=== PATIENT | male | born 1965 | race Two or more races ===

== ENCOUNTER 2021-07-14 21:31 | Emergency (ER) | payer MEDICAID ==
[~2021-07-14] VITALS: Ht 170.2 cm; Wt 99.8 kg
[2021-07-14 22:33] LABS: Urine Amorphous Crystal MOD /hpf (None Seen); Urine Bacteria FEW /hpf (None Seen); Urine Blood Negative /uL (Negative); Urine Mucus FEW (None Seen); Urine Specific Gravity 1.025 (1.001-1.035); Urine WBC <1 /hpf (0 - 3)
[2021-07-14 23:10] LABS: Basophils # (auto) 0.1 10 ^3/uL (0-0.2); Basophils % (auto) 0.8 % (0.0-2.0); Eosinophils # (auto) 0.1 10 ^3/uL (0-0.8); Eosinophils % (auto) 2.2 % (0.0-7.0); Hemoglobin 15.9 g/dL (13.5-17.5); Lymphocytes # (auto) 2.1 10 ^3/uL (0.4-5.4); Lymphocytes % (auto) 31.1 % (10.0-50.0); Mean Corpuscular Hemoglobin 32.6 pg (28.0-32.0); Mean Corpuscular Hgb Conc. 33.8 g/dL (32.0-36.0); Mean Corpuscular Volume 96.3 fL (80.0-100.0); Monocytes # (auto) 0.8 10 ^3/uL (0-1.3); Monocytes % (auto) 12.4 % (0.0-12.0); Neutrophils # (auto) 3.6 10 ^3/uL (1.6-8.6); Neutrophils % (auto) 53.5 % (37.0-80.0); Nucleated Red Blood Cells % 0.1 %; Red Blood Cells 4.88 10^6/uL (4.5-5.90); Red Cell Distribution Width 13.7 % (11.8-14.3); White Blood Cell 6.7 10^3/uL (4.4-10.8)
[2021-07-14 23:26] LABS: Albumin 3.9 g/dL (3.4-5.0); Magnesium 2.6 mg/dL (1.6-2.6); Potassium 4.2 mmol/L (3.5-5.1)
[2021-07-14 23:28] LABS: Bilirubin, Total 0.6 mg/dL (0.2-1.0); Total Protein 7.1 g/dL (6.4-8.2)
[2021-07-15] MEDS ORDERED: IPRATROPIUM BROM 0.5 MG/2.5ML INH SOL NEB ONE (03:00)
[2021-07-15] MEDS ORDERED: KETOROLAC TROMETH 60MG/2ML VIAL IM ONE (03:00)
[2021-07-15] MEDS ORDERED: ALBUTEROL SULF 2.5 MG/0.5ML(0.5%) NEB SOLN NEB ONE (03:00)
[2021-07-15] MEDS ORDERED: ASPirin 325 MG TAB PO ONE (03:00)
[2021-07-15 06:00] VITALS: BP 113/66
== END 2021-07-15 06:35 | disposition home or self-care (01) ==
LOC: ER 21:31
DX: R07.9 Chest pain, unspecified (principal); I10 Essential (primary) hypertension; J45.909 Unspecified asthma, uncomplicated
CPT/HCPCS: 36415; 71045; 80053; 81001; 83735; 83880; 84484; 85025; 93005; 94640; 99285; J7644

== ENCOUNTER 2021-09-18 20:22 | Inpatient (IN) | payer MEDICAID ==
[~2021-09-18] VITALS: Ht 170.2 cm; Wt 101.2 kg
[2021-09-18] MEDS ORDERED: ALUM & MAG HYDROX-SIMETH LIQ(MAALOX) 30 ML PO ONE (23:00)
[2021-09-18] MEDS ORDERED: ONDANSETRON ODT 4 MG TAB PO ONE (23:00)
[2021-09-18] MEDS ORDERED: LIDOCAINE VISCOUS 2% 15ML UD PO ONE (23:00)
[2021-09-18] MEDS ORDERED: FAMOTIDINE 20 MG TAB PO ONE (23:00)
[2021-09-19] MEDS ORDERED: LACTATED RINGER'S 1,000 ML IV ONE (01:00)
[2021-09-19] MEDS ORDERED: IOHEXOL 300 MG/ML 100ML BOTTLE IJ ONE (01:03)
[2021-09-19 01:15] LABS: Albumin 4.8 g/dL (3.4-5.0); Calcium 8.8 mg/dL (8.5-10.1)
[2021-09-19 01:18] LABS: Bilirubin, Total 1.8 mg/dL (0.2-1.0); Potassium 5.9 mmol/L (3.5-5.1); Total Protein 8.5 g/dL (6.4-8.2)
[2021-09-19] MEDS ORDERED: InsuLIN REG 1unit/0.01ml Soln (100units/ml) IV ONE (01:30)
[2021-09-19] MEDS ORDERED: SODIUM ZIRCONIUM CYCL 10 GM PAK PO ONE (01:30)
[2021-09-19] MEDS ORDERED: DEXTROSE (50%) 50ML SYRG IV ONE (01:30)
[2021-09-19] MEDS ORDERED: ALBUTEROL SULF 2.5 MG/0.5ML(0.5%) NEB SOLN NEB ONE (01:30)
[2021-09-19] MEDS ORDERED: CALCIUM GLUC 1,000mg/50ml-NS 50 ML IV ONE (01:30)
[2021-09-19 01:33] LABS: Hematocrit 54.8 % (41.0-53.0); Hemoglobin 18.7 g/dL (13.5-17.5); Mean Corpuscular Hemoglobin 33.3 pg (28.0-32.0); Mean Corpuscular Volume 97.8 fL (80.0-100.0); Red Blood Cells 5.61 10^6/uL (4.5-5.90); Red Cell Distribution Width 13.8 % (11.8-14.3); White Blood Cell 26.9 10^3/uL (4.4-10.8)
[2021-09-19 02:16] LABS: Basophils % (manual) 0 (0.0-2.0); Blast Cells 0; Eosinophils % (manual) 0 (0-7); Metamyelocytes % 0; Myelocytes % 0; Promyelocytes % 0; Reactive Lymphocytes 0
[2021-09-19 03:11] LABS: Urine Bacteria NONE SEEN /hpf (None Seen); Urine Blood Negative /uL (Negative); Urine Hyaline Cast FEW /lpf (0 - 2); Urine Mucus FEW (None Seen); Urine Specific Gravity 1.032 (1.001-1.035); Urine WBC 5 /hpf (0 - 3); Urine WBC Clumps PRESENT /hpf (None Seen)
[2021-09-19 04:20] LABS: Band Neutrophils % (manual) 14; Lymphocytes % (manual) 1 (10.0-50.0)
[2021-09-19 04:21] LABS: Monocytes % (manual) 2 (0-12)
[2021-09-19] MEDS ORDERED: metroNIDAZOLE 500MG/100ML 100 ML IV ONE (07:45)
[2021-09-19] MEDS ORDERED: cefTRIAXone 1GM/50ML D5W 50 ML IV ONE (07:45)
[2021-09-19] MEDS ORDERED: SODIUM CHLORIDE 0.9% 1,000 ML IV ONE (09:00)
[2021-09-19] MEDS: SODIUM CHLORIDE 0.9% 1,000 ML IV SCH ×2 (09:17→11:19)
[2021-09-19 09:20] LABS: Calcium 7.8 mg/dL (8.5-10.1); Potassium 4.8 mmol/L (3.5-5.1)
[2021-09-19 09:23] LABS: BUN/Creatinine Ratio 14.1
[2021-09-19 09:27] LABS: Lactic Acid w/Reflex 3.9 mmol/L (0.4-2.0)
[2021-09-19] MEDS ORDERED: ONDANSETRON HCL 4 MG/2 ML VIAL IV PRN (10:00)
[2021-09-19] MEDS ORDERED: AZITHROMYCIN 500MG/ 250ML 250 ML IV SCH (10:00)
[2021-09-19] MEDS ORDERED: ACETAMINOPHEN 325 MG TAB PO PRN (10:00)
[2021-09-19] MEDS: cefTRIAXone 1GM/50ML D5W 50 ML IV SCH (11:19)
[2021-09-19] MEDS: SODIUM CHLOR 0.9% PF (SALINE LOCK) 10ML VIAL/SYR IV SCH ×2 (14:20→22:00)
[2021-09-19] MEDS: metroNIDAZOLE 500MG/100ML 100 ML IV SCH ×2 (14:20→23:07)
[2021-09-19 16:04] VITALS: BP 113/59
[2021-09-19 22:48] VITALS: BP 122/79
[2021-09-19] MEDS: HYDROcodone-ACET 5/325MG TAB PO PRN (22:48)
[2021-09-19] MEDS ORDERED: LISI-716 PO (23:06)
[2021-09-19] MEDS ORDERED: ESCI-28 PO (23:06)
[2021-09-19] MEDS ORDERED: ALBU108A5 INH (23:06)
[2021-09-19] MEDS ORDERED: PANT40T PO (23:06)
[2021-09-19] MEDS ORDERED: NAP500T PO (23:06)
[2021-09-19] MEDS ORDERED: MONT-8 PO (23:06)
[2021-09-19] MEDS ORDERED: ASPI-325 PO (23:06)
[2021-09-20] VITALS (7 sets, daily range): BP systolic 111–133; BP diastolic 64–79
[2021-09-20] MEDS: SODIUM CHLORIDE 0.9% 1,000 ML IV SCH ×2 (05:29→11:30)
[2021-09-20] MEDS: metroNIDAZOLE 500MG/100ML 100 ML IV SCH (05:29)
[2021-09-20] MEDS: SODIUM CHLOR 0.9% PF (SALINE LOCK) 10ML VIAL/SYR IV SCH ×3 (05:29→20:52)
[2021-09-20 06:53] LABS: Calcium 7.8 mg/dL (8.5-10.1); Potassium 4.3 mmol/L (3.5-5.1)
[2021-09-20] MEDS: cefTRIAXone 1GM/50ML D5W 50 ML IV SCH (09:42)
[2021-09-20] MEDS ORDERED: PANTOPRAZOLE 40 MG/10 ML VIAL INJ IV ONE (10:30)
[2021-09-20] MEDS: HYDROcodone-ACET 5/325MG TAB PO PRN (20:53)
[2021-09-20] MEDS ORDERED: MONTELUKAST SODIUM 10 MG TAB PO SCH (22:00)
[2021-09-20 22:25] LABS: Urine Bacteria NONE SEEN /hpf (None Seen); Urine Blood Negative /uL (Negative); Urine Mucus FEW (None Seen); Urine Specific Gravity 1.019 (1.001-1.035); Urine WBC <1 /hpf (0 - 3)
[2021-09-21] MEDS: SODIUM CHLORIDE 0.9% 1,000 ML IV SCH ×2 (00:42→12:44)
[2021-09-21 05:00] VITALS: BP 126/74
[2021-09-21] MEDS: SODIUM CHLOR 0.9% PF (SALINE LOCK) 10ML VIAL/SYR IV SCH ×2 (06:16→14:00)
[2021-09-21 06:38] LABS: Potassium 4.8 mmol/L (3.5-5.1)
[2021-09-21 06:43] LABS: BUN/Creatinine Ratio 14.6; Calcium 8.3 mg/dL (8.5-10.1)
[2021-09-21 07:29] LABS: Basophils # (auto) 0 10 ^3/uL (0-0.2); Basophils % (auto) 0.2 % (0.0-2.0); Eosinophils # (auto) 0.1 10 ^3/uL (0-0.8); Eosinophils % (auto) 0.9 % (0.0-7.0); Hematocrit 44.8 % (41.0-53.0); Hemoglobin 14.6 g/dL (13.5-17.5); Lymphocytes # (auto) 1.5 10 ^3/uL (0.4-5.4); Lymphocytes % (auto) 25.7 % (10.0-50.0); Mean Corpuscular Hemoglobin 32.1 pg (28.0-32.0); Mean Corpuscular Hgb Conc. 32.7 g/dL (32.0-36.0); Mean Corpuscular Volume 98.1 fL (80.0-100.0); Monocytes # (auto) 0.6 10 ^3/uL (0-1.3); Monocytes % (auto) 10.2 % (0.0-12.0); Neutrophils # (auto) 3.7 10 ^3/uL (1.6-8.6); Nucleated Red Blood Cells % 0.1 %; Red Blood Cells 4.57 10^6/uL (4.5-5.90); Red Cell Distribution Width 13.4 % (11.8-14.3); White Blood Cell 5.9 10^3/uL (4.4-10.8)
[2021-09-21 09:00] VITALS: BP 133/78
[2021-09-21] MEDS ORDERED: PANT40TA2 PO (09:56)
[2021-09-21] MEDS ORDERED: PANTOPRAZOLE 40 MG/10 ML VIAL INJ IV SCH (10:00)
[2021-09-21 13:00] VITALS: BP 124/72
== END 2021-09-21 14:45 | disposition still patient (30) | DRG 249 ==
LOC: ER 20:22 → OVERFLOW 09-19 09:57 → CENTRAL 09-19 22:24
PROVIDERS: ADMIT Internal Medicine; ATTEND Internal Medicine
DX: K52.9 Noninfective gastroenteritis and colitis, unspecified (principal); N17.0 Acute kidney failure with tubular necrosis; E87.2 Acidosis; R65.10 Systemic inflammatory response syndrome (SIRS) of non-infectious origin without acute organ dysfunction; D69.6 Thrombocytopenia, unspecified; E87.5 Hyperkalemia; J45.909 Unspecified asthma, uncomplicated; N18.2 Chronic kidney disease, stage 2 (mild); Z20.822 Contact with and (suspected) exposure to COVID-19; F41.9 Anxiety disorder, unspecified; E66.9 Obesity, unspecified; Z68.34 Body mass index [BMI] 34.0-34.9, adult
CPT/HCPCS: 36415; 71045; 71260; 74177; 80048; 80053; 81001; 82270; 83605; 83690; 83735; 84484; 85007; 85027; 87040; 87493; 93005; 94640; 96365; 96375; C9113; G0378; J0696; J1815; J3490; Q0162

== ENCOUNTER 2022-08-11 14:33 | Emergency (ER) | payer MEDICAID ==
[~2022-08-11] VITALS: Ht 172.7 cm; Wt 97.1 kg
[~2022-08-11 14:33] MED LIST: ALBU108A5 INH; ASPI-325 PO; ESCI1TAB36 PO; LISI10TA34 PO; MONT-8 PO; NAP500T PO; PANT40T PO; PANT40TA2 PO
[2022-08-11] MEDS ORDERED: IOHEXOL 350 MG/ML 100ML IJ ONE (15:15)
[2022-08-11 15:38] LABS: Basophils # (auto) 0 10 ^3/uL (0-0.2); Basophils % (auto) 0.7 % (0.0-2.0); Eosinophils # (auto) 0.1 10 ^3/uL (0-0.8); Eosinophils % (auto) 1.3 % (0.0-7.0); Hematocrit 46.7 % (41.0-53.0); Hemoglobin 15.8 g/dL (13.5-17.5); Lymphocytes # (auto) 1.6 10 ^3/uL (0.4-5.4); Lymphocytes % (auto) 29.2 % (10.0-50.0); Mean Corpuscular Hgb Conc. 33.9 g/dL (32.0-36.0); Mean Corpuscular Volume 97.4 fL (80.0-100.0); Monocytes # (auto) 0.5 10 ^3/uL (0-1.3); Monocytes % (auto) 9.3 % (0.0-12.0); Neutrophils # (auto) 3.2 10 ^3/uL (1.6-8.6); Neutrophils % (auto) 59.5 % (37.0-80.0); Nucleated Red Blood Cells % 0.2 %; Red Blood Cells 4.79 10^6/uL (4.5-5.90); Red Cell Distribution Width 12.7 % (11.8-14.3); White Blood Cell 5.3 10^3/uL (4.4-10.8)
[2022-08-11 15:57] LABS: Albumin 4.4 g/dL (3.4-5.0); Potassium 3.6 mmol/L (3.5-5.1)
[2022-08-11 16:01] LABS: BUN/Creatinine Ratio 11.2 (10.0-20.0); Bilirubin, Total 0.8 mg/dL (0.2-1.0); Total Protein 6.9 g/dL (6.4-8.2)
[2022-08-11 18:23] VITALS: BP 138/84
== END 2022-08-11 18:25 | disposition home or self-care (01) ==
LOC: ER 14:33
DX: R06.00 Dyspnea, unspecified (principal); R53.82 Chronic fatigue, unspecified; J45.909 Unspecified asthma, uncomplicated; I10 Essential (primary) hypertension
CPT/HCPCS: 36415; 71046; 71275; 80053; 83880; 84484; 85025; 93005; 99285; Q9967